=== PATIENT | male | born 1965 | race Caucasian/White ===

== ENCOUNTER 2016-12-04 11:35 | Day surgery (SDC) | payer BC ==
[~2016-12-04] VITALS: Ht 185.4 cm; Wt 92.8 kg
[~2016-12-04 11:35] MED LIST: CYMBALTA 20MG20 MG PO
[2016-12-04 11:59] VITALS: BP 128/80; PULSE 85; TEMP 97.7
[2016-12-04 13:50] VITALS: BP 129/89; PULSE 80; TEMP 97.3
[2016-12-04 14:05] VITALS: BP 106/75; PULSE 79
[2016-12-04 15:35] VITALS: BP 132/81; PULSE 83
== END 2016-12-04 14:44 | disposition home or self-care (01) ==
LOC: SDCO 11:35
DX: K63.5 Polyp of colon (principal); E78.5 Hyperlipidemia, unspecified; F41.9 Anxiety disorder, unspecified; G47.00 Insomnia, unspecified; Z79.899 Other long term (current) drug therapy
CPT/HCPCS: OP; J2250; J2405; J3010; J7030

== ENCOUNTER 2023-02-13 21:58 | Observation (INO) | payer BC ==
[~2023-02-13] VITALS: Ht 185.4 cm; Wt 89.0 kg
[2023-02-13 23:50] VITALS: BP 111/98; PULSE 78; TEMP 98.4
[2023-02-14] VITALS (16 sets, daily range): BP systolic 96–129; BP diastolic 55–70; PULSE 60–95; TEMP 97.8–99.8
--- NOTE | 2023-02-14 06:50 | NUR ---
dr ga in w pt. new orders in. pt reports pain a 03/17, requesting pain medication.
--- NOTE | 2023-02-14 07:57 | NUR ---
pt resting, at bedside. fluids infusing in right hand. assessment complete. pt given dilauded for pain. pt waiting for abdominal ultrasound. pt wanting ice chips, mouth swabs given instead. no needs at this time.
[2023-02-14 08:03] LABS: BASO % 0.2 % (0.0-2.0); EOS # 0.2 K/mm3 (0.0-0.7); EOS % 1.1 % (0.0-4.0); GRAN # 16.4 K/mm3 (1.4-6.5); GRAN % 85.7 % (42.2-75.2); HEMOGLOBIN 14.5 g/dl (13.5-18.0); LYMPH # 1.2 K/mm3 (1.2-3.4); LYMPH % 6.2 % (20.0-51.0); MEAN CELL VOLUME 91 fl (80.0-100.0); MEAN CORPUSCULAR HEMOGLOBIN 30 pg (27-31); MEAN CORPUSCULAR HGB CONC 33 g/dl (33.0-37.0); MONO # 1.2 K/mm3 (0.1-0.6); MONO % 6.2 % (1.7-9.3); PLATELET COUNT 271 K/mm3 (130-400); RED BLOOD COUNT 4.85 M/mm3 (4.20-5.60); REDCELL DISTRIBUTION WIDTH-CV 13.2 % (11.5-14.5)
--- NOTE | 2023-02-14 08:14 | NUR ---
pt reports minimal relief from pain medication, kpad placed on back for relief.
[2023-02-14 08:21] LABS: ALBUMIN 3.6 gm/dL (3.5-5.0); BILIRUBIN,DIRECT 0.9 mg/dL (0.0-0.5); BILIRUBIN,TOTAL 2.6 mg/dL (0.2-1.2); TOTAL PROTEIN 8.2 gm/dL (6.2-8.1)
--- NOTE | 2023-02-14 10:39 | NUR ---
SW went to complete intake with pt. Pt was in pain and spouse Brenda ([phone]) also identified as NOK was able to provide needed info. Spouse reports they live in [place], [place]. Spouse denies DME, 02 or issues with stairs at home. Spouse reports no longer has PCP and requested PCP list; SW provided. Spouse reports pt's pharmacy is [facility] in [facility] with no issues. Spouse reports DPOA established and if needed would be able to provide. D/C plan Home with spouse
--- NOTE | 2023-02-14 12:59 | NUR ---
pt reports feeling nauseas and increase in pain, zofran and dilauded given
--- NOTE | 2023-02-14 13:37 | NUR ---
pt ambulating halls to help w back pain
--- NOTE | 2023-02-14 14:00 | NUR ---
pt mother reports pt grabbing stomach and acting like he is in pain, morphine for relief.
--- NOTE | 2023-02-14 15:40 | NUR ---
pt off floor for surgery
--- NOTE | 2023-02-14 17:46 | NUR ---
pt back from surgery, at bedside. vss. x3 lap sites with bandaids are cdi. scds to ble. pt reports some pain, denies nausea. call light in reach.
--- NOTE | 2023-02-14 21:01 | NUR ---
PT C/O BURNING IN STOMACH, BUT STATES INCISIONS FEEL FINE. PT STATES BURNING IN STOMACH IS UNCOMFORTABLE (01/15). 1999 RANG TO REPORT INCISION NEAR BELLY BUTTON IS ACTIVELY BLEEDING THROUGH THE BANDAID ON IT. 2 SMALL ROUND SPOTS OF BLOOD NOTED ON GOWN. BANDAID AND GOWN CHANGED. ADVISED PT WE WOULD KEEP AN EYE ON BLEEDING INCISION AND COULD TRY A DIFFERENT BANDAGE IF IT BLEEDS THROUGH AGAIN. 2044 PT REQUESTING "SOMETHING TO HELP HIM SLEEP". BUTTON SEWER HAND DR. BARTON CONTACTED - YOUNG ARAMBULA 5MG NOW FOR INSOMNIA. CURRENT BP 96/59, WHICH SEEMS TO BE FAIRLY NORMAL FOR PT.
[2023-02-15 00:49] VITALS: BP_SYST 105
[2023-02-15 03:42] VITALS: BP 120/66; PULSE 72; TEMP 98.4
[2023-02-15 04:48] VITALS: BP_SYST 120
[2023-02-15] MEDS ORDERED: NORCO 325 MG-51 TAB PO (07:02)
--- NOTE | 2023-02-15 07:36 | NUR ---
PATIENT AWAKE AND ALERT, RESTING IN BED. PATIETN DENIES ANY NEEDS OR COMPLAINTS AT THIS TIME. PER PATIENT ABD JUST FEELS "SORES". IS AT BEDSIDE. PATIENT VOICES BEING READY FOR DISCHARGE.
[2023-02-15 08:00] VITALS: BP 107/62; PULSE 66; TEMP 98
--- NOTE | 2023-02-15 09:30 | NUR ---
PATIENT AWAKE AND ALERT, DISCHARGE INSTRUCITONS AND EDUCATION GIVEN TO PATIENT. IV DISCONTINUED. PATIENT ASSISTED TO DRESS BY . PATIENT VERBALIZES UNDERSTANDING. NO FURTHER QUESTIONS. PATIETN TAKEN TO ER ENTRANCE WHERE HE LEFT IN STABLE CONDITION IN THE CARE OF HIS .
== END 2023-02-15 09:30 | disposition home or self-care (01) ==
LOC: MEDICAL 21:58 → SURG 22:48
PROVIDERS: ADMIT Surgery
DX: K80.00 Calculus of gallbladder with acute cholecystitis without obstruction (principal); K82.A1 Gangrene of gallbladder in cholecystitis; K31.819 Angiodysplasia of stomach and duodenum without bleeding; J40 Bronchitis, not specified as acute or chronic
CPT/HCPCS: G0378; G0379; J0690; J1170; J1885; J2270; J2405; J2543; J2704; J3010; J7030; J7120; Q9967